=== PATIENT | female | born 1970 | race Caucasian/White ===

== ENCOUNTER 2017-07-13 14:54 | Emergency (ER) | payer BC ==
[~2017-07-13] VITALS: Ht 157.5 cm; Wt 56.8 kg
[2017-07-13 14:58] VITALS: TEMP 98
[2017-07-13 15:35] LABS: BASO # 0.1 (0.0-0.2); BASO % 0.6 % (0.0-2.0); EOS # 0.2 (0.0-0.7); EOS % 2.5 % (0-4.0); GRAN # 5.5 (1.4-6.5); GRAN % 65.7 % (42.2-75.2); HEMATOCRIT 39.6 % (37.0-47.0); HEMOGLOBIN 13.8 g/dl (12.5-16.0); LYMPH # 1.9 (1.2-3.4); LYMPH % 22.1 % (20.0-51.0); MEAN CELL VOLUME 93 fl (80.0-100.0); MEAN CORPUSCULAR HEMOGLOBIN 32 pg (27.0-31.0); MEAN CORPUSCULAR HGB CONC 35 g/dl (33.0-37.0); MEAN PLATELET VOLUME 8.9 fl (7.4-10.4); MONO # 0.8 (0.1-0.6); MONO % 8.9 % (1.7-9.3); PLATELET COUNT 335 K/mm3 (130-400); RED BLOOD COUNT 4.28 M/mm3 (4.10-5.30); WHITE BLOOD COUNT 8.4 K/mm3 (4.8-10.8)
[2017-07-13 15:53] LABS: ALANINE AMINOTRANSFERASE 44 U/L (9-52); ALBUMIN 4.9 gm/dL (3.5-5.0); ALKALINE PHOSPHATASE 47 U/L (50-136); ANION GAP 9 mmol/L (7-16); BILIRUBIN,TOTAL 0.7 mg/dL (0.0-1.0); BLOOD UREA NITROGEN 14 mg/dL (7-17); CALCIUM 9.7 mg/dL (8.4-10.2); CARBON DIOXIDE 27 mmol/L (22-30); CHLORIDE 103 mmol/L (98-107); CREATININE, serum 0.71 mg/dL (0.52-1.25); GLUCOSE 80 mg/dL (74-106); POTASSIUM 3.5 mmol/L (3.4-5.0); SODIUM 139 mmol/L (137-145); TOTAL PROTEIN 7.3 gm/dL (6.4-8.2)
[2017-07-13 16:05] LABS: TROPONIN-I < 0.012 ng/mL (0.000-0.034)
[2017-07-13 16:41] VITALS: BP 104/67; PULSE 82
== END 2017-07-13 16:48 | disposition home or self-care (01) ==
LOC: COL.ER 14:54
PROVIDERS: Nurse Practitioner
DX: R07.2 Precordial pain (principal); F41.9 Anxiety disorder, unspecified

== ENCOUNTER → 2018-01-18 | Outpatient (CLI) | payer BC | LOC: MC.RAD 14:06 | DX: Z12.31 Encounter for screening mammogram for malignant neoplasm of breast (principal) ==

== ENCOUNTER 2018-05-11 22:40 | Emergency (ER) | payer BC ==
[~2018-05-11] VITALS: Ht 157.5 cm; Wt 56.8 kg
[2018-05-11 22:46] VITALS: BP 117/58; TEMP 98.9
[2018-05-11 23:35] LABS: BASO # 0.1 (0.0-0.2); BASO % 0.7 % (0.0-2.0); EOS # 0.2 (0.0-0.7); EOS % 3.4 % (0-4.0); GRAN # 4.2 (1.4-6.5); GRAN % 62.2 % (42.2-75.2); HEMATOCRIT 35.4 % (37.0-47.0); HEMOGLOBIN 12.8 g/dl (12.5-16.0); LYMPH # 1.6 (1.2-3.4); LYMPH % 23.3 % (20.0-51.0); MEAN CELL VOLUME 89 fl (80.0-100.0); MEAN CORPUSCULAR HEMOGLOBIN 32 pg (27.0-31.0); MEAN CORPUSCULAR HGB CONC 36 g/dl (33.0-37.0); MONO # 0.7 (0.1-0.6); MONO % 10.1 % (1.7-9.3); PLATELET COUNT 293 K/mm3 (130-400); RED BLOOD COUNT 3.97 M/mm3 (4.10-5.30); REDCELL DISTRIBUTION WIDTH-CV 11.6 % (11.5-14.5)
[2018-05-11 23:48] LABS: ALANINE AMINOTRANSFERASE 48 U/L (9-52); ALBUMIN 4.3 gm/dL (3.5-5.0); ALKALINE PHOSPHATASE 43 U/L (50-136); ANION GAP 12 mmol/L (7-16); AST,SGOT 28 U/L (15-37); BILIRUBIN,TOTAL 0.4 mg/dL (0.0-1.0); BLOOD UREA NITROGEN 12 mg/dL (7-17); CALCIUM 8.9 mg/dL (8.4-10.2); CARBON DIOXIDE 24 mmol/L (22-30); CHLORIDE 97 mmol/L (98-107); CREATININE, serum 0.51 mg/dL (0.52-1.25); GLUCOSE 96 mg/dL (74-106); LIPASE 82 U/L (23-300); POTASSIUM 3.1 mmol/L (3.4-5.0); SODIUM 133 mmol/L (137-145); TOTAL PROTEIN 7.2 gm/dL (6.4-8.2)
[2018-05-11 23:49] LABS: C-REACTIVE PROTEIN < 0.5 mg/dL (0.0-0.9)
[2018-05-12 00:26] LABS: COLLECTION METHOD CLEAN CATCH
[2018-05-12 00:39] LABS: MUCOUS Present /lpf; PH 8 (5-8); SQUAMOUS EPITHELIAL 0-2 /hpf; URINE APPEARANCE Clear; URINE BACTERIA None Seen /hpf; URINE BILIRUBIN Negative (NEGATIVE); URINE BLOOD Negative (NEGATIVE); URINE COLOR Yellow; URINE GLUCOSE Negative (NEGATIVE); URINE KETONE 2+ (NEGATIVE); URINE LEUKOCYTE ESTERASE Negative (NEGATIVE); URINE NITRATE Negative (NEGATIVE); URINE PROTEIN(semi-quant) 1+ (NEGATIVE); URINE RBC 0-2 /hpf; URINE UROBILINOGEN Negative (NEGATIVE)
[2018-05-12 02:35] VITALS: PULSE 89
== END 2018-05-12 02:35 | disposition home or self-care (01) ==
LOC: COL.ER 22:40
PROVIDERS: Emergency Medicine
DX: R11.10 Vomiting, unspecified (principal); R10.30 Lower abdominal pain, unspecified; Z98.51 Tubal ligation status; Z98.890 Other specified postprocedural states
CPT/HCPCS: J1170; J2405; J7030

== ENCOUNTER → 2020-03-16 | Outpatient (CLI) | payer BC | LOC: MC.RAD 11:22 | DX: Z12.31 Encounter for screening mammogram for malignant neoplasm of breast (principal) ==

== ENCOUNTER → 2021-04-26 | Outpatient (CLI) | payer BC | LOC: MC.RAD 09:15 | DX: Z12.31 Encounter for screening mammogram for malignant neoplasm of breast (principal); N64.89 Other specified disorders of breast ==

== ENCOUNTER → 2021-04-28 | Outpatient (CLI) | payer BC | LOC: MC.RAD 08:46 | DX: N64.89 Other specified disorders of breast (principal) ==

== ENCOUNTER → 2022-04-28 | Outpatient (CLI) | payer BC | LOC: MC.RAD 09:13 | DX: Z12.31 Encounter for screening mammogram for malignant neoplasm of breast (principal) ==